=== PATIENT | female | born 1945 | race Caucasian/White ===

== ENCOUNTER 2022-05-02 15:15 | Emergency (ER) | payer OTHER, MEDICAID ==
[~2022-05-02] VITALS: Ht 160 cm; Wt 56.7 kg
[2022-05-02 15:46] LABS: MEAN CORPUSCULAR HEMOGLOBIN 31.6 uug (24.7-32.8); MEAN CORPUSCULAR VOLUME 92.2 fL (75.5-95.3); PLATELET COUNT (AUTO) 329 K/uL (179-408)
[2022-05-02 15:52] LABS: CARBON DIOXIDE 26 mmol/L (21-32); CHLORIDE 99 mmol/L (98-107); CREATININE 1.4 mg/dL (0.6-1.3); GLUCOSE 129 mg/dL (74-106); POTASSIUM 3.4 mmol/L (3.5-5.1); UREA NITROGEN, BLOOD 31 mg/dL (7-18)
[2022-05-02] MEDS ORDERED: IV NORMAL SALINE 500 ML BAG IV ONE ×2 (16:00→19:00)
[2022-05-02] MEDS ORDERED: CEFTRIAXONE 1 G in IV DEXTROSE 5% 50 ML IV ONE (16:00)
[2022-05-02] MEDS ORDERED: CEFTRIAXONE /D5W 50ML IVPB **ER PYXIS IV ONE (16:02)
[2022-05-02 16:05] LABS: ALANINE AMINOTRANSFERASE 15 U/L (14-59); ALKALINE PHOSPHATASE 90 U/L (50-136); ASPARTATE AMINOTRANSFERASE 17 U/L (15-37); BILIRUBIN,TOTAL 0.4 mg/dL (0.2-1.0); TOTAL PROTEIN, SERUM 7.3 g/dL (6.4-8.2)
--- NOTE | 2022-05-02 16:38 | NUR ---
1550 iv 22g started in right AC, tolerated, secured with tape
[2022-05-02] MEDS ORDERED: MIRALAX 17 GM POWD.PACK ONE (17:36)
[2022-05-02] MEDS: MAGNESIUM CITRATE 296 ML BOTTLE PO ONE ×2 (17:41→17:49)
[2022-05-02 18:17] LABS: *BILIRUBIN,URIN NEGATIVE (NEGATIVE); *BLOOD, URINE 3+ (NEGATIVE); *CLARITY,URINE SLIGHTLY CLOUDY (CLEAR); *COLOR,URINE LIGHT YELLOW (YELLOW); *KETONES,URINE NEGATIVE (NEGATIVE); *UROBILINOGEN,URINE 0.2 E.U./dl (NORMAL); LEUKOCYTE ESTERASE ,URINE 2+ (NEGATIVE); NITRITE, URINE POSITIVE (NEGATIVE); PH,URINE 5.5 (5.0-8.0); UGLUCOSE NEGATIVE (NEGATIVE)
[2022-05-02] MEDS ORDERED: MIRALAX 17 GM POWD.PACK PO ONE (18:45)
--- NOTE | 2022-05-02 20:21 | NUR ---
assisted the pt to the bathroom with moderate assist. pt uses a cane.
[2022-05-02 21:06] LABS: BACTERIA,URINE FEW /HPF (NONE SEEN); SQUAMOUS EPITHELIAL CELL,UR NONE SEEN /HPF (NONE SEEN)
--- NOTE | 2022-05-02 21:16 | NUR ---
pt assisted to the bathroom pt states she wants to leave [facility], she is inisting that I remove the iv and she says her ride will be here in 15 mintues.
--- NOTE | 2022-05-02 21:25 | NUR ---
Dr. Barajas in to speak with the pt. the pt wants to leave [facility]. Call to [facility] per request of Dr. Barajas.
[2022-05-02] MEDS ORDERED: CEPH500C2 PO (21:32)
[2022-05-02] MEDS ORDERED: NITR100C11 PO (21:32)
--- NOTE | 2022-05-02 21:45 | NUR ---
Patient does not wish to proceed with medical care recommended by Dr. Barajas. Patient given information related to possible complications, up to and including , which could occur as a result of leaving the hospital at this time. Patient verbalizes understanding of risks involved due to leaving against medical advice. Patient has signed AMA form. pts ride here to [place] pick[place] the pt. labs and prescriptions were provided to the pt.
== END 2022-05-02 21:49 | disposition left against medical advice (07) ==
LOC: ER 15:15
DX: A41.9 Sepsis, unspecified organism (principal); N39.0 Urinary tract infection, site not specified; Z53.29 Procedure and treatment not carried out because of patient's decision for other reasons; Z20.822 Contact with and (suspected) exposure to COVID-19; Z95.1 Presence of aortocoronary bypass graft; Z96.642 Presence of left artificial hip joint; F41.9 Anxiety disorder, unspecified; R00.0 Tachycardia, unspecified
CPT/HCPCS: 99285; 74176; 96365; 96361; 71045; 87426; 80053; 81001; 83880; 85025; 87086; 84484; 36415; 93005; 83605; J0696; J7040 ×2; A4663